=== PATIENT | female | born 1965 | race Caucasian/White ===

== ENCOUNTER 2016-03-28 17:25 | Emergency (ER) | payer MEDICARE ==
[2016-03-28 17:36] VITALS: BP 110/62; PULSE 102; O2SAT 93
--- NOTE | 2016-03-28 17:44 | ERPHSYRPT ---
- History of Present Illness Time Seen by Provider: 03/28/16 17:30 Source: patient Exam Limitations: no limitations Patient Subjective Stated Complaint: pt states she thinks she may have an abscess to coccyx. states pain started on 03/25/16. Triage Nursing Assessment: pt pink,warm, dry. pt obese. afebrile. Timing/Duration: day(s) (4), worse Quality: painful Severity: moderate Location: perirectal Possible Causes: no cause identified Associated Symptoms: swelling/mass/lumps Allergies/Adverse Reactions: No Known Drug Allergies Allergy (Verified 03/28/16 17:36) Home Medications: Aspirin [Aspir 81] 81 mg PO DAILY 12/23/11 [History] Duloxetine HCl [Cymbalta] 60 mg PO BID 12/23/11 [History] Hydrocodone/APAP 5/500 mg [Vicodin 5/500 MG] 1 tab PO UD 12/23/11 [History] Metformin HCl 500 mg [Glucophage 500 MG] 500 mg PO UD 12/23/11 [History] Oxybutynin Chloride 5 mg [Ditropan 5 MG] 5 mg PO BID 12/23/11 [History] Pravastatin Sodium 10 mg [Pravachol 10 MG] 40 mg PO DAILY 12/23/11 [History] Amlodipine Besylate 5 mg [Norvasc 5 mg] 5 mg PO 5XD 09/24/15 [History] Aripiprazole 10 mg [Abilify 10 MG] 20 mg PO DAILY 09/24/15 [History] Carvedilol [Coreg] 12.5 mg PO BID 09/24/15 [History] Omeprazole 20 MG [Prilosec 20 mg] 20 mg PO DAILY 09/24/15 [History] Sitagliptin Phosphate [Januvia] 100 mg PO DAILY 09/24/15 [History] Trazodone HCl 100 mg PO HS 09/24/15 [History] Clonazepam 1 mg PO TID 03/28/16 [History] Hx Tetanus, Diphtheria Vaccination/Date Given: Yes (up to date) Hx Influenza Vaccination/Date Given: No Hx Pneumococcal Vaccination/Date Given: No Immunizations Up to Date: Yes - Review of Systems Constitutional: No Symptoms Eyes: No Symptoms Ears, Nose, & Throat: No Symptoms Respiratory: No Symptoms Cardiac: No Symptoms Abdominal/Gastrointestinal: No Symptoms Musculoskeletal: No Symptoms Skin: Induration, Skin Lesions Neurological: No Symptoms Psychological: No Symptoms Endocrine: No Symptoms Hematologic/Lymphatic: No Symptoms Immunological/Allergic: No Symptoms - Past Medical History Pertinent Past Medical History: Yes Neurological History: Stroke ENT History: Macular Degeneration Cardiac History: High Cholesterol, Hypertension, Other Respiratory History: COPD Endocrine Medical History: Diabetes Type I Musculoskeletal History: Arthritis, Fibromyalgia GI Medical History: GERD History: No Pertinent History Psycho-Social History: Depression, Panic Disorder Female Reproductive Disorders: No Pertinent History Other Medical History: ENLARGED HEART - Past Surgical History Past Surgical History: Yes Neuro Surgical History: No Pertinent History Cardiac: No Pertinent History Respiratory: No Pertinent History Gastrointestinal: Cholecystectomy Genitourinary: No Pertinent History Musculoskeletal: Joint Replacement Female Surgical History: No Pertinent History - Social History Smoking Status: Current every day smoker How long have you smoked: 30 Exposure to second hand smoke: Yes Alcohol Use: None Drug Use: none Patient Lives Alone: No Significant Family History: heart disease, diabetes, hypertension - Female History Hx Now: No - Nursing Vital Signs Nursing Vital Signs: Initial Vital Signs Temperature 97.9 F Temperature Source Oral Pulse Rate 102 Respiratory Rate 18 Blood Pressure 110/62 Pain Intensity 10 - Physical Exam General Appearance: moderate distress Eye Exam: eyes nml inspection Ears, Nose, Throat Exam: normal ENT inspection Neck Exam: normal inspection, non-tender, supple, full range of motion Respiratory Exam: normal breath sounds Cardiovascular Exam: regular rate/rhythm, normal heart sounds Gastrointestinal/Abdomen Exam: soft, normal bowel sounds Rectal Exam: tenderness (1 cm diameter perirectal tender nodule at 1200 position. Slight induration and erythema. ) Back Exam: normal inspection, normal range of motion Extremity Exam: normal inspection, normal range of motion, pelvis stable Neurologic Exam: alert, oriented x 3, cooperative Skin Exam: normal color, warm, dry SpO2 Interpretation: normal SpO2: 93 Oxygen Delivery: Room Air - Course Nursing assessment & vital signs reviewed: Yes - Progress Progress: unchanged Counseled pt/family regarding: diagnosis, need for follow-up (with PCP 1 week) - Departure Time of Disposition: 17:45 Departure Disposition: Home Clinical Impression: Perirectal abscess Condition: Stable Critical Care Time: No Instructions: Methicillin-Resistant Staph Infection (MRSA)
== END 2016-03-28 17:55 | disposition home or self-care (01) ==
LOC: ED 17:25
DX: K61.1 Rectal abscess (principal); I10 Essential (primary) hypertension; E78.00 Pure hypercholesterolemia, unspecified; E10.9 Type 1 diabetes mellitus without complications; Z79.899 Other long term (current) drug therapy
CPT/HCPCS: 99282

== ENCOUNTER 2020-08-31 08:57 | Emergency (ER) | payer MEDICARE ==
--- NOTE | 2020-08-31 09:19 | ERPHSYRPT ---
- History of Present Illness Time Seen by Provider: 08/31/20 09:19 Source: patient Exam Limitations: no limitations Physician History: This is a morbidly obese 55-year-old white female who has a history of elevated cholesterol, hypertension, [id number] diabetes, gastroesophageal reflux disease and presents with a 1 week history of left flank pain that radiat es down into her left lower quadrant and left flank. Patient denies any trauma or recent fall or injury to her back. Patient does have a history of osteoarthritis in her lower back area. This feels different to her. Patient last took anything for pain, last evening. She took her [place], Flexeril and Klonopin. The pain is not resolving with this medication. She is never had this type of pain before. She had no fever. She has no chills. She has had associated nausea and vomiting. She has had no diarrhea. Patient denies chest pain and she denies shortness of breath. Timing/Duration: week(s) (1) Method of Injury: other (Jury) Quality: sharp, aching Back Pain Location: paraspinous muscles (Left flank) Severity of Pain-Max: moderate Severity of Pain-Current: moderate Modifying Factors: Improves With: movement Associated Symptoms: nausea, vomiting, lower back pain (Left flank) Previous symptoms: no prior history Allergies/Adverse Reactions: No Known Drug Allergies Allergy (Verified 08/31/20 09:29) Home Medications: Aspirin [Aspir 81] 81 mg PO DAILY 12/23/11 [History] Metformin HCl 500 mg [Glucophage 500 MG] 1,000 mg PO BID 12/23/11 [History] Oxybutynin Chloride 5 mg [Ditropan 5 MG] 5 mg PO BID 12/23/11 [History] Pravastatin Sodium 10 mg [Pravachol 10 MG] 80 mg PO DAILY 12/23/11 [History] Aripiprazole 10 mg [Abilify 10 MG] 30 mg PO DAILY 09/24/15 [History] Omeprazole 20 MG [Prilosec 20 mg] 20 mg PO DAILY 09/24/15 [History] Trazodone HCl 150 mg PO HS 09/24/15 [History] Clonazepam 1 mg PO BID 03/28/16 [History] Amlodipine Besylate 5 mg [Norvasc 5 mg] 5 mg PO DAILY 08/31/20 [History] Ezetimibe 10 mg [Zetia 10 MG] 10 mg PO DAILY 08/31/20 [History] Fluticasone Propion/Salmeterol [Fluticasone-Salmeterol 500-50] 1 inh PO BID 08/31/20 [History] Gabapentin 300 mg [Neurontin 300 mg] 300 mg PO TID 08/31/20 [History] Hydrocodone Bit/Acetaminophen [[place] 5-325 Tablet] 1 each PO TID 08/31/20 [History] Lisinopril 10 mg [Zestril 10 MG] 10 mg PO DAILY 08/31/20 [History] Mirabegron [Myrbetriq] 25 mg PO DAILY 08/31/20 [History] Naproxen Sodium [Naproxen Sodium ER] 500 mg PO BID 08/31/20 [History] Sitagliptin Phosphate [Januvia] 100 mg PO DAILY 08/31/20 [History] Venlafaxine HCl [Effexor] 100 mg PO BID 08/31/20 [History] Hx Tetanus, Diphtheria Vaccination/Date Given: Yes (up to date) Hx Influenza Vaccination/Date Given: No Hx Pneumococcal Vaccination/Date Given: No Travel Risk - International Travel Have you traveled outside of the country in past 3 weeks: No - Coronavirus Screening Are you exhibiting any of the following symptoms?: No Close contact with a COVID-19 positive Pt in past 14-21 Days: No - Review of Systems Constitutional: No Symptoms Eyes: No Symptoms Ears, Nose, & Throat: No Symptoms Respiratory: No Symptoms Cardiac: No Symptoms Abdominal/Gastrointestinal: Nausea, Vomiting Genitourinary Symptoms: No Symptoms Musculoskeletal: Back Pain Skin: No Symptoms Neurological: No Symptoms Psychological: No Symptoms Endocrine: No Symptoms Hematologic/Lymphatic: No Symptoms Immunological/Allergic: No Symptoms All Other Systems: Reviewed and Negative - Past Medical History Pertinent Past Medical History: Yes Neurological History: Stroke ENT History: Macular Degeneration Cardiac History: High Cholesterol, Hypertension, Other Respiratory History: COPD Endocrine Medical History: Diabetes Type I Musculoskeletal History: Arthritis, Fibromyalgia GI Medical History: GERD History: No Pertinent History Psycho-Social History: Depression, Panic Disorder Female Reproductive Disorders: No Pertinent History Other Medical History: ENLARGED HEART - Past Surgical History Past Surgical History: Yes Neuro Surgical History: No Pertinent History Cardiac: No Pertinent History Respiratory: No Pertinent History Gastrointestinal: Cholecystectomy Genitourinary: No Pertinent History Musculoskeletal: Joint Replacement Female Surgical History: No Pertinent History - Social History Smoking Status: Current every day smoker How long have you smoked: 30 Exposure to second hand smoke: Yes Alcohol Use: None Drug Use: none Patient Lives Alone: No Significant Family History: heart disease, diabetes, hypertension - Nursing Vital Signs Nursing Vital Signs: Initial Vital Signs Temperature 98.0 F 08/31/20 09:18 Pulse Rate 63 08/31/20 09:18 Blood Pressure 178/100 08/31/20 09:18 O2 Sat by Pulse Oximetry 95 08/31/20 09:18 Pain Scale Pain Intensity 10 - Physical Exam General Appearance: no apparent distress, alert, anxiety, obese Eye Exam: PERRL/EOMI, eyes nml inspection Ears, Nose, Throat Exam: normal ENT inspection, moist mucous membranes Neck Exam: normal inspection, non-tender, supple, full range of motion Respiratory Exam: normal breath sounds, lungs clear, airway intact, No chest tenderness, No respiratory distress Cardiovascular Exam: regular rate/rhythm, normal heart sounds, normal peripheral pulses Gastrointestinal Exam: soft, normal bowel sounds, No tenderness Pelvic Exam: not done Back Exam: normal inspection, normal range of motion, CVA tenderness (Left), No vertebral tenderness Extremity Exam: normal inspection, normal range of motion, pelvis stable Neurologic Exam: alert, oriented x 3, cooperative, network lead II-XII nml as tested, normal mood/affect, nml cerebellar function, nml station & gait, sensation nml Skin Exam: normal color, warm, dry Lymphatic Exam: No adenopathy SpO2 Interpretation: normal O2 Delivery: Room Air - Course Nursing assessment & vital signs reviewed: Yes Ordered Tests: Active Orders 24 hr Category Date Time Status IV Insertion STAT Care 08/31/20 09:41 Active ABDOMEN AND PELVIS W/0 CONTRAS [CT] Stat Exams 08/31/20 09:43 Taken CBC W DIFF Stat Lab 08/31/20 10:00 Completed CMP Stat Lab 08/31/20 10:00 Completed LIPASE Stat Lab 08/31/20 10:00 Completed Lactic Acid Stat Lab 08/31/20 09:41 Completed UA W/RFX UR CULTURE Stat Lab 08/31/20 10:43 Completed Medication Summary Discontinued Medications Generic Name Dose Route Start Last Admin Trade Name Mark PRN Reason Stop Dose Admin Hydromorphone HCl 1 mg 08/31/20 09:41 08/31/20 10:10 Hydromorphone 1 Mg/Ml Injection IV 08/31/20 09:42 1 mg STAT ONE Administration Hydromorphone HCl Confirm 08/31/20 10:09 Hydromorphone 1 Mg/Ml Injection Administered 08/31/20 10:10 Dose 1 mg .ROUTE .STK-MED ONE Sodium Chloride 1,000 mls @ 999 mls/hr 08/31/20 09:41 08/31/20 10:10 Sodium Chloride 0.9% 1000 Ml IV 08/31/20 10:41 999 mls/hr .Q1H1M STA Administration Sodium Chloride Confirm 08/31/20 10:09 Sodium Chloride 0.9% 1000 Ml Administered 08/31/20 10:10 Dose 1,000 mls @ ud .ROUTE .STK-MED ONE Ketorolac Tromethamine 30 mg 08/31/20 09:41 08/31/20 10:10 Toradol 30 Mg Injection IV 08/31/20 09:42 30 mg STAT ONE Administration Ketorolac Tromethamine Confirm 08/31/20 10:09 Toradol 30 Mg Injection Administered 08/31/20 10:10 Dose 30 mg .ROUTE .STK-MED ONE Ondansetron HCl 4 mg 08/31/20 09:41 08/31/20 10:11 Zofran 4 Mg/2 Ml Vial IV 08/31/20 09:42 4 mg STAT ONE Administration Ondansetron HCl Confirm 08/31/20 10:09 Zofran 4 Mg/2 Ml Vial Administered 08/31/20 10:10 Dose 4 mg .ROUTE .STK-MED ONE Lab/Rad Data: Laboratory Result Diagrams 08/31/20 10:00 08/31/20 10:00 Laboratory Results 08/31/20 08/31/20 08/31/20 Range/Units 10:43 10:00 10:00 WBC 9.3 (4.0-10.5) K/mm3 RBC 4.86 (4.1-5.4) M/mm3 Hgb 14.4 (12.0-16.0) gm/dl Hct 43.9 (35-47) % MCV 90.3 (78-100) fl MCH 29.6 (26-32) pg MCHC 32.8 (32-36) g/dl RDW 13.5 (11.5-14.0) % Plt Count 296 (150-450) K/mm3 MPV 9.4 (7.5-11.0) fl Gran % 84.7 H (36.0-66.0) % Eos # (Auto) 0.02 (0-0.5) Absolute Lymphs (auto) 1.01 (1.0-4.6) Absolute Monos (auto) 0.37 (0.0-1.3) Lymphocytes % 10.9 L (24.0-44.0) % Monocytes % 4.0 (0.0-12.0) % Eosinophils % 0.2 (0.00-5.0) % Basophils % 0.2 (0.0-0.4) % Absolute Granulocytes 7.87 H (1.4-6.9) Basophils # 0.02 (0-0.4) Sodium 134 L (137-145) mmol/L Potassium 3.7 (3.5-5.1) mmol/L Chloride 98 (98-107) mmol/L Carbon Dioxide 26 (22-30) mmol/L Anion Gap 14.7 (5-15) MEQ/L BUN 12 (7-17) mg/dL Creatinine 0.55 (0.52-1.04) mg/dL Estimated GFR > 60.0 ML/MIN Glucose 182 H (74-106) mg/dL Lactic Acid (0.4-2.0) Calcium 9.6 (8.4-10.2) mg/dL Total Bilirubin 0.40 (0.2-1.3) mg/dL AST 21 (14-36) U/L ALT 21 (0-35) U/L Alkaline Phosphatase 45 (38-126) U/L Serum Total Protein 7.6 (6.3-8.2) g/dL Albumin 4.6 (3.5-5.0) g/dL Lipase 19 L (23-300) U/L Urine Color [place] (YELLOW) Urine Appearance SLIGHTLY CLOUDY (CLEAR) Urine pH 5.0 (5-6) Ur Specific [place] 1.030 (1.005-1.025) Urine Protein 100 (Negative) Urine Ketones SMALL (NEGATIVE) Urine Blood NEGATIVE (0-5) Marvin/ul Urine Nitrite NEGATIVE (NEGATIVE) Urine Bilirubin SMALL (NEGATIVE) Urine Urobilinogen 4 (0-1) mg/dL Ur Leukocyte Esterase NEGATIVE (NEGATIVE) Urine WBC (Auto) 3-5 (0-5) /HPF Urine RBC (Auto) 6-10 (0-2) /HPF U Epithel Cells (Auto) RARE (FEW) /HPF Urine Bacteria (Auto) NONE SEEN (NEGATIVE) /HPF Urine Mucus (Auto) MANY (NEGATIVE) /HPF Urine Culture Reflexed NO (NO) Urine Glucose NEGATIVE (NEGATIVE) mg/dL 08/31/20 Range/Units 09:41 WBC (4.0-10.5) K/mm3 RBC (4.1-5.4) M/mm3 Hgb (12.0-16.0) gm/dl Hct (35-47) % MCV (78-100) fl MCH (26-32) pg MCHC (32-36) g/dl RDW (11.5-14.0) % Plt Count (150-450) K/mm3 MPV (7.5-11.0) fl Gran % (36.0-66.0) % Eos # (Auto) (0-0.5) Absolute Lymphs (auto) (1.0-4.6) Absolute Monos (auto) (0.0-1.3) Lymphocytes % (24.0-44.0) % Monocytes % (0.0-12.0) % Eosinophils % (0.00-5.0) % Basophils % (0.0-0.4) % Absolute Granulocytes (1.4-6.9) Basophils # (0-0.4) Sodium (137-145) mmol/L Potassium (3.5-5.1) mmol/L Chloride (98-107) mmol/L Carbon Dioxide (22-30) mmol/L Anion Gap (5-15) MEQ/L BUN (7-17) mg/dL Creatinine (0.52-1.04) mg/dL Estimated GFR ML/MIN Glucose (74-106) mg/dL Lactic Acid 1.0 (0.4-2.0) Calcium (8.4-10.2) mg/dL Total Bilirubin (0.2-1.3) mg/dL AST (14-36) U/L ALT (0-35) U/L Alkaline Phosphatase (38-126) U/L Serum Total Protein (6.3-8.2) g/dL Albumin (3.5-5.0) g/dL Lipase (23-300) U/L Urine Color (YELLOW) Urine Appearance (CLEAR) Urine pH (5-6) Ur Specific [place] (1.005-1.025) Urine Protein (Negative) Urine Ketones (NEGATIVE) Urine Blood (0-5) Marvin/ul Urine Nitrite (NEGATIVE) Urine Bilirubin (NEGATIVE) Urine Urobilinogen (0-1) mg/dL Ur Leukocyte Esterase (NEGATIVE) Urine WBC (Auto) (0-5) /HPF Urine RBC (Auto) (0-2) /HPF U Epithel Cells (Auto) (FEW) /HPF Urine Bacteria (Auto) (NEGATIVE) /HPF Urine Mucus (Auto) (NEGATIVE) /HPF Urine Culture Reflexed (NO) Urine Glucose (NEGATIVE) mg/dL - Progress Progress: improved, pain not gone completely, re-examined Progress Note: 08/31/20 11:02 CAT scan of the abdomen pelvis with out contrast shows no acute findings but there is old moderate amount of stool throughout the colon. Counseled pt/family regarding: lab results, diagnosis, need for follow-up, rad results - Departure Departure Disposition: Home Clinical Impression: Left flank pain, Constipation Condition: Stable Critical Care Time: No Referrals: MARGARET SALAZAR MD [Primary Care Provider] - Additional Instructions: Drink plenty of fluids. Increase your activity by walking several times a day. Use your back pain medication as prescribed. Follow-up with your primary care physician for further management.
[2020-08-31] MEDS ORDERED: Hydromorphone 1 mg/ml Injection IV ONE (09:41)
[2020-08-31] MEDS ORDERED: Zofran 4 MG/2 ML VIAL IV ONE (09:41)
[2020-08-31] MEDS ORDERED: TORAdol 30 mg Injection IV ONE (09:41)
[2020-08-31] MEDS ORDERED: Sodium Chloride 0.9% 1000 ML 1,000 ML IV STA (09:41)
[2020-08-31] MEDS ORDERED: Sodium Chloride 0.9% 1000 ML 1,000 ML ONE (10:09)
[2020-08-31] MEDS ORDERED: Zofran 4 MG/2 ML VIAL ONE (10:09)
[2020-08-31] MEDS ORDERED: TORAdol 30 mg Injection ONE (10:09)
[2020-08-31] MEDS ORDERED: Hydromorphone 1 mg/ml Injection ONE (10:09)
[2020-08-31 10:17] LABS: Absolute Neutrophil Ct (ANC) 7.87 (1.4-6.9); BASOPHIL % 0.2 % (0.0-0.4); Basophil (Absolute #) 0.02 (0-0.4); Eosinophil % 0.2 % (0.00-5.0); Eosinophil (Absolute #) 0.02 (0-0.5); Hematocrit 43.9 % (35-47); Hemoglobin 14.4 gm/dl (12.0-16.0); Lymphocyte (Absolute #) 1.01 (1.0-4.6); Lymphocytes % 10.9 % (24.0-44.0); Mean Cell Volume 90.3 fl (78-100); Mean Corpuscular Hemoglobin 29.6 pg (26-32); Mean Corpuscular Hgb Concent. 32.8 g/dl (32-36); Mean Platelet Volume 9.4 fl (7.5-11.0); Monocyte (Absolute #) 0.37 (0.0-1.3); Neutrophil % 84.7 % (36.0-66.0); Platelet Count 296 K/mm3 (150-450); Red Blood Count 4.86 M/mm3 (4.1-5.4); Red Cell Distribution Width 13.5 % (11.5-14.0); White Blood Count 9.3 K/mm3 (4.0-10.5)
[2020-08-31 10:23] LABS: ALBUMIN 4.6 g/dL (3.5-5.0); ALKALINE PHOSPHATASE 45 U/L (38-126); ANION GAP 14.7 MEQ/L (5-15); BLOOD UREA NITROGEN 12 mg/dL (7-17); CHLORIDE 98 mmol/L (98-107); Calcium 9.6 mg/dL (8.4-10.2); Carbon Dioxide 26 mmol/L (22-30); Creatinine 1 0.55 mg/dL (0.52-1.04); EST GLOMERULAR FILTRATION RATE > 60.0 ML/MIN; Glucose 182 mg/dL (74-106); LIPASE 19 U/L (23-300); Potassium 3.7 mmol/L (3.5-5.1); SGOT/AST 21 U/L (14-36); SGPT/ALT 21 U/L (0-35); SODIUM 134 mmol/L (137-145); Total Protein 7.6 g/dL (6.3-8.2)
[2020-08-31 11:04] LABS: Appearance SLIGHTLY CLOUDY (CLEAR); Bilirubin SMALL (NEGATIVE); Blood NEGATIVE Ery/ul (0-5); Epithelial Cells RARE /HPF (FEW); Glucose NEGATIVE (NEGATIVE); Ketones SMALL (NEGATIVE); Leukocyte Esterase NEGATIVE (NEGATIVE); Mucus MANY /HPF (NEGATIVE); Nitrite NEGATIVE (NEGATIVE); Protein,Urine Dip 100 (Negative); Urobilinogen 4 mg/dL (0-1)
[2020-08-31 11:06] LABS: Bacteria NONE SEEN /HPF (NEGATIVE)
[2020-08-31 11:08] VITALS: BP 145/70; PULSE 66; O2SAT 96
--- NOTE | 2020-08-31 19:14 | XRAY ---
Indication: Left flank pain. Low back pain. Multiple contiguous axial images obtained through the abdomen and pelvis without contrast. Comparison: None Lung bases demonstrates minimal subsegmental atelectasis/scarring without infiltrate or effusion. Heart is enlarged. Small hiatal hernia. Noncontrasted stomach and bowel loops appear nonobstructed. Normal appendix. Ascending colon demonstrates moderate fecal debris. No free fluid/air. Previous cholecystectomy. Remaining liver, pancreas, spleen, adrenal glands, kidneys, ureters, bladder, and uterus appear unremarkable for noncontrast exam. Mild scattered aortoiliac calcifications without AAA. Osseous structures intact with mild/moderate degenerative spondylosis throughout the thoracolumbar spine and minimal 1-2 mm L4 spondylolisthesis. Impression: 1. Moderate fecal debris ascending colon, small hiatal hernia, cardiomegaly, and chronic bony findings. 2. Remaining CT abdomen/pelvis without contrast exam is negative. Comment: Preliminary interpretation was made by [facility]. No critical discrepancy.
== END 2020-08-31 11:35 | disposition home or self-care (01) ==
LOC: ED 08:57
DX: R10.9 Unspecified abdominal pain (principal); K59.00 Constipation, unspecified
CPT/HCPCS: 36415; 74176; 80053; 81001; 83605; 83690; 85025; 96374; 96375; 99284; J1170; J1885; J2405